=== PATIENT | female | born 1985 | race Caucasian/White ===

== ENCOUNTER → 2016-07-01 | Outpatient (CLI) | payer MEDICAID ==
[2016-07-01 18:46] LABS: BASO % 0.4 % (0.0-1.0); EOS # 0.5 K/mm3 (0.0-0.50); EOS % 8.2 % (0.0-3.0); LARGE UNSTAINED CELL # 0.1 K/mm3 (0.0-0.4); LARGE UNSTAINED CELL % 2.1 % (0.0-4.0); LYMPH # 2.1 K/mm3 (1.5-4.5); LYMPH % 34.6 % (24.0-44.0); MEAN CORPUSCULAR HGB CONC 34.7 g/dl (32.0-36.5); MEAN CORPUSCULAR VOLUME 83.7 fl (80.0-96.0); MONO # 0.4 K/mm3 (0.0-0.8); MONO % 6.7 % (0.0-5.0); NEUTROPHILS # 2.9 K/mm3 (1.8-7.7); PLATELET COUNT, AUTOMATED 249 k/mm3 (150-450); RED CELL DISTRIBUTION WIDTH 12.1 % (11.5-14.5)
[2016-07-02 08:13] LABS: IMMUNOGLOBULIN G 1120 MG/DL (681-1648); IMMUNOGLOBULIN M 77.3 MG/DL (40-230)
[2016-07-06 14:12] LABS: IgG SERUM (part of Subclasses) 1099 mg/dL (700-1600); IgG Subclass 1 605 mg/dL (422-1292); IgG Subclass 2 343 mg/dL (117-747); IgG Subclass 3 111 mg/dL (41-129); IgG Subclass 4 40 mg/dL (1-291)
== END ==
LOC: M SMT 15:20
PROVIDERS: ATTEND Nurse Practitioner Family
DX: J32.9 Chronic sinusitis, unspecified (principal)

== ENCOUNTER → 2018-06-17 | Outpatient (CLI) | payer MEDICAID, OTHER ==
--- NOTE | 2018-06-17 11:39 | REP ---
Right ankle: Five views. History: Pain in the right ankle. Findings: Ankle mortise is intact. No fractures seen. Achilles and plantar calcaneal spurring is noted. Bones, joints and soft tissues are otherwise unremarkable. Impression: Heel spurs. No acute bony abnormality. Electronically Signed by Roman Fatima MD 06/17/2018 11:30 A
== END ==
LOC: M LRY 11:11
PROVIDERS: ATTEND Physician Assistant
DX: M77.31 Calcaneal spur, right foot (principal); M25.571 Pain in right ankle and joints of right foot